=== PATIENT | male | born 1955 | race Caucasian/White ===

== ENCOUNTER 2018-01-07 19:30 | Emergency (ER) | payer OTHER ==
[2018-01-07] MEDS ORDERED: Proparacaine 0.5% Ophth Soln 15 ML Bottle EYELF ONE (19:50)
[2018-01-07] MEDS ORDERED: Fluorescein 1 MG Ophth Strip EYERT ONE (19:51)
[2018-01-07] MEDS ORDERED: Take Home: Diclofenac Sodium 0.1% Ophth Soln 5 ML, 1 Bottle Pack EYEBOTH ONE (20:12)
[2018-01-07] MEDS ORDERED: Take Home: Gentamicin 0.3% Ophth Soln 5 ML, 1 Bottle Pack EYEBOTH ONE (20:12)
--- NOTE | 2018-01-10 09:17 | EDM.PDOC ---
ED HPI GENERAL MEDICAL PROBLEM - General Chief Complaint: ENT Problem Stated Complaint: ?Foreign body in right eye Time Seen by Provider: 01/07/18 20:00 Source of Information: Reports: Patient History Limitations: Reports: No Limitations - History of Present Illness INITIAL COMMENTS - FREE TEXT/NARRATIVE: Pt. was handing cabinets in his kitchen and felt he got something in his eye 2 days before coming to ER. He lives in [place], [place] and is here for a [employer] convention. He states that throughout the day today, he has noticed watering and discomfort to the R eye. Denies any significant occular trauma. Location: Reports: Face Treatments CITY SURVEYOR: Reports: Other (see below) Other Treatments CITY SURVEYOR: flushe eye with NS eye drops Right eye Pain Score (Numeric/FACES): 4 - Related Data Allergies Allergy/AdvReac Type Severity Reaction Status Date / Time niacin Allergy Other Verified 01/07/18 19:50 Home Meds: Home Meds Aspirin 81 mg PO DAILY 01/07/18 [History] Levothyroxine 200 mcg PO DAILY 01/07/18 [History] Lisinopril 20 mg PO DAILY 01/07/18 [History] Sertraline [Zoloft] 100 mg PO DAILY 01/07/18 [History] Simvastatin [Zocor] 40 mg PO DAILY 01/07/18 [History] Past Medical History Cardiovascular History: Reports: High Cholesterol, Hypertension Psychiatric History: Reports: Depression Endocrine/Metabolic History: Reports: Hypothyroidism ED ROS GENERAL - Review of Systems Review Of Systems: See Below Constitutional: Reports: No Symptoms HEENT: Reports: Eye Pain ED EXAM, GENERAL - Physical Exam Exam: See Below Exam Limited By: No Limitations General Appearance: Alert, WD/WN, No Apparent Distress Eye Exam: Right Eye: EOMI, Foreign Body, Normal Fundi, Normal Inspection, PERRL Course - Vital Signs Last Recorded V/S: Last Vital Signs Temp 36.1 C 01/07/18 19:50 Pulse 71 01/07/18 19:50 Resp 16 01/07/18 19:50 BP 160/86 H 01/07/18 19:50 Pulse Ox 96 01/07/18 19:50 - Orders/Labs/Meds Meds: Medications Discontinued Medications Generic Name Dose Route Start Last Admin Trade Name Freq PRN Reason Stop Dose Admin Diclofenac Sodium 1 packet 01/07/18 20:12 01/07/18 20:20 Take Home: Diclofenac 0.1% Ophth, 1 Bottle EYEBOTH 01/07/18 20:13 1 packet ONETIME ONE Administration Fluorescein Sodium 1 mg 01/07/18 19:51 01/07/18 20:06 Ful-Denisse EYERT 01/07/18 19:52 1 mg ONETIME ONE Administration Gentamicin Sulfate 1 packet 01/07/18 20:12 01/07/18 20:20 Take Home: Gentamicin 0.3% Ophth Soln, 1 Jessica EYEBOTH 01/07/18 20:13 1 packet ONETIME ONE Administration Proparacaine HCl 1 ml 01/07/18 19:50 01/07/18 20:04 Proparacaine 0.5% Ophth Soln EYELF 01/07/18 19:51 2 drop ONETIME ONE Administration Departure - Departure Time of Disposition: 20:28 Disposition: Home, Self-Care 01 Clinical Impression: Foreign body, eye - Discharge Information Instructions: Eye Foreign Body, [id number] Referrals: PCP,Not In Area [Primary Care Provider] - Forms: ED Department Discharge Additional Instructions: Diclofenac drops 1 drop to R eye 3 times per day. Gentamycin dropps 1 drop to R eye 5 times per day. Follow-up at eye clinic of choice either tomorrow or Wednesday for a slit lamp examination.
== END 2018-01-07 20:28 | disposition home or self-care (01) ==
LOC: VM.ED 19:30
DX: T15.91XA Foreign body on external eye, part unspecified, right eye, initial encounter (principal); Z88.8 Allergy status to other drugs, medicaments and biological substances; Z79.82 Long term (current) use of aspirin; Z79.899 Other long term (current) drug therapy; I10 Essential (primary) hypertension; E78.00 Pure hypercholesterolemia, unspecified; E03.9 Hypothyroidism, unspecified
CPT/HCPCS: 65220; 99283; A9270-GY